=== PATIENT | male | born 1965 | race Caucasian/White ===

== ENCOUNTER → 2020-11-25 08:19 | Outpatient (CLI) | payer OTHER, SELFPAY ==
--- NOTE | ~2020-11-25 | XR_ITS ---
EXAMINATION: XR lumbar spine 2-3V EXAM DATE: 11/25/2020 09:11 INDICATION: Central to low back pain. TECHNIQUE: Lumber spine frontal, lateral, lateral L5-S1 projections for interpretation. There is no prior study for comparison. FINDINGS: There is mild lower thoracic disc disease. The lumbar vertebral body and disc heights are maintained. There is mild lumbar facet arthropathy. The vertebral bodies are aligned in the AP dimens ion. Sacrum, sacroiliac joints, sacral arcuate lines are intact. Paraspinal soft tissue is unremarkab le. IMPRESSION: 1. Mild lumbar facet arthropathy. 2. Mild lower thoracic disc disease. Reviewed, dictated and finalized at location A.
== END ==
PROVIDERS: PCP Family Medicine; Visit Provider Physician Assistant
DX: M51.24 Other intervertebral disc displacement, thoracic region (principal)
CPT/HCPCS: 72100

== ENCOUNTER → 2021-06-23 14:26 | Outpatient (CLI) | payer OTHER, SELFPAY ==
--- NOTE | ~2021-06-23 | MR_ITS ---
EXAMINATION: MR cervical spine wo con EXAM DATE: 06/23/2021 15:13 INDICATION: Cervical disc disorder with radiculopathy . Neck pain. TECHNIQUE: Multi-sequential, multiplanar MR images of the cervical spine were obtained without contra st. Axial T2, axial T2 MERGE sequence. Sagittal T1, T2, T2 fat saturation images also obtained. Com parison is made to prior examination from 06/15/2019. FINDINGS: There is moderate-sized to large disc extrusion from the C5-6 level indenting the anterior aspect of the spinal cord. There is small focus of increased spinal cord signal intensity at this le [place] without expansion, probably some chronic myelomalacia. There is posterior disc extrusion at the C 4-5 level. Mild to moderate disc disease at C6-7. The vertebral bodies are aligned in the AP dimensio n. Cervicomedullary junction is normal in appearance. There are no suspicious marrow signal abnormali ties. Paraspinal soft tissue is unremarkable. Level by level evaluation: C2-C3: Disc does not extend beyond the endplate margin. Uncovertebral joint arthropathy: None. Facet joint arthropathy: Mild bilateral. Neural foraminal stenosis: No stenosis. Central canal stenosis: No stenosis. C3-C4: There is a minimal diffuse disc bulge. Uncovertebral joint arthropathy: Mild right. Facet joint arthropathy: Mild bilateral. Neural foraminal stenosis: Mild right. Central canal stenosis: No stenosis. C4-C5: Small to moderate central disc protrusion indenting anterior aspect spinal cord. Uncovertebral joint arthropathy: Mild bilateral. Facet joint arthropathy: Mild to moderate bilateral. Neural foraminal stenosis: Moderate right, mild to moderate left. Central canal stenosis: Mild. Central canal measures 7 mm in mid sagittal AP diameter . C5-C6: There is a moderate to large diffuse disc bulge/central extrusion. Uncovertebral joint arthropathy: Moderate to severe right, moderate left. Facet joint arthropathy: Mild to moderate bilateral. Neural foraminal stenosis: Severe right, moderate to severe left. Central canal stenosis: Moderate to severe. Central canal measures 4 mm in mid sagittal AP diameter . C6-C7: There is a mild diffuse disc bulge. Uncovertebral joint arthropathy: Moderate left, mild to moderate right. Facet joint arthropathy: Mild bilateral. Neural foraminal stenosis: Moderate bilateral, left greater than right. Central canal stenosis: Mild. C7-T1: There is a mild diffuse disc bulge. Uncovertebral joint arthropathy: Mild to moderate right. Facet joint arthropathy: Mild bilateral. Neural foraminal stenosis: Mild to moderate right, no left. Central canal stenosis: Minimal. Compared to prior study the C5-6 disc bulge has gotten slightly larger, and small focus of increased T2 signal probably myelomalacia has developed. The C4-5 disc extrusion has also gotten larger. IMPRESSION: Progression of disc disease C4-5 and 5-6, now with moderate to severe C5-6 Central canal stenosis, development of small focus spinal cord myelomalacia (on the right side). Reviewed, dictated and finalized at location A. IMPRESSION: Progression of disc disease C4-5 and 5-6, now with moderate to eloy re C5-6 Central canal stenosis, development of small focus spinal cord myelomal acia (on the right side).
== END ==
PROVIDERS: Visit Provider Nurse Practitioner Gerontology
DX: M50.322 Other cervical disc degeneration at C5-C6 level (principal); M50.321 Other cervical disc degeneration at C4-C5 level
CPT/HCPCS: 72141

== ENCOUNTER → 2021-09-03 14:17 | Outpatient (CLI) | payer OTHER, SELFPAY ==
--- NOTE | ~2021-09-03 | MR_ITS ---
EXAMINATION: MR thoracic spine wo con DATE: 09/03/2021 14:52 INDICATION: Mid back pain. Cervical disc disorder with radiculopathy. TECHNIQUE: Magnetic resonance imaging (MRI) of the thoracic spine was performed without intravenous c ontrast. Sagittal localizer T1-weighted FSE of the cervical spine was obtained. Thoracic spine sequen vanesa included sagittal T2-weighted FSE, sagittal T1-weighted FSE, sagittal STIR FSE, and axial T2-weig hted FSE. COMPARISON: None FINDINGS: There is kyphosis of thoracic spine. There is mild chronic anterior wedging of T7-T12 verte bral bodies with Schmorl's nodes. There is mildly decreased disc height at T4-T5 and moderately decre ased disc height from T7-T8 through T10-T11. There is multilevel facet joint osteoarthritis, severe o n the left at T3-T4. On the right, there is moderate neural foraminal stenosis at T10-T11. On the lef t, there is mild neural foraminal stenosis at T3-T4 and T11-T12. At T4-T5, there is a left central pr otrusion with mild central canal stenosis and ventral indentation of the spinal cord. At T5-T6, there is a right central protrusion with mild central canal stenosis and ventral indentation of the spinal cord. At T7-T8, there is a central protrusion with annular fissure, mild central canal stenosis, and ventral indentation of the spinal cord. At T8-T9, there is a right central extrusion with mild centr al canal stenosis and ventral indentation of the spinal cord. At T9-T10, there is a left central extr usion with mild central canal stenosis and ventral indentation of the spinal cord. The spinal cord si gnal intensity is normal. IMPRESSION: 1. Moderate thoracic spondylosis. Reviewed, dictated and finalized at location B. [employer]
== END ==
PROVIDERS: Visit Provider Neurological Surgery
DX: M47.814 Spondylosis without myelopathy or radiculopathy, thoracic region (principal); M48.04 Spinal stenosis, thoracic region; M48.54XA Collapsed vertebra, not elsewhere classified, thoracic region, initial encounter for fracture
CPT/HCPCS: 72146

== ENCOUNTER 2025-08-02 14:33 | Outpatient (CLI) | payer OTHER, SELFPAY | END 2025-08-02 14:34 | disposition home or self-care (01) | PROVIDERS: PCP Nurse Practitioner Family; Visit Provider Nurse Practitioner Family | DX: R00.2 Palpitations (principal) | CPT/HCPCS: 93242 ==